=== PATIENT | male | born 1945 | race Caucasian/White ===

== ENCOUNTER 2018-06-15 05:34 | Inpatient (IN) | payer OTHER, MEDICARE ==
[2018-06-14 16:07] LABS: BASOPHILS % (AUTO) 0.5 % (0-1); EOSINOPHILS # (AUTO) 0.2 X10'3 (0-0.9); EOSINOPHILS % (AUTO) 2.1 % (0-6); LYMPHOCYTES # (AUTO) 1.2 X10'3 (1.1-4.8); LYMPHOCYTES % (AUTO) 13.2 % (21-51); MEAN CORPUSCULAR HEMOGLOBIN 28.4 PG (27.0-31.0); MEAN CORPUSCULAR HGB CONC 32.4 % (33.0-36.5); MEAN CORPUSCULAR VOLUME 87.7 FL (78-98); MEAN PLATELET VOLUME 7.8 FL (7.4-10.4); MONOCYTES # (AUTO) 0.7 X10'3 (0-0.9); MONOCYTES % (AUTO) 6.9 % (2-12); NEUTROPHILS # (AUTO) 7.3 X10'3 (1.8-7.7); NEUTROPHILS % (AUTO) 77.3 % (42-75); PRE OP HEMATOCRIT 40.5 % (42.0-52.0); PRE OP HEMOGLOBIN 13.1 g/dL (14.0-17.9); PRE OP PLATELET COUNT 371 X10'3 (140-440); RED BLOOD COUNT 4.62 X10'6 (4.70-6.10); RED CELL DISTRIBUTION WIDTH 15.1 % (11.5-14.5)
[2018-06-14 16:25] LABS: ALBUMIN 3.4 G/DL (3.4-5.0); ALBUMIN/GLOBULIN RATIO 0.7 (1.1-1.5); ALKALINE PHOSPHATASE 147 IU/L (46-116); BLOOD UREA NITROGEN 24 MG/DL (7-18); BUN/CREATININE RATIO 16.4 (5.4-32.0); CALCIUM 9.3 MG/DL (8.5-10.1); CHLORIDE 104 MMOL/L (99-107); CREATININE 1.46 MG/DL (0.60-1.10); PRE OP ALT 21 U/L (30-65); PRE OP ANION GAP 9 (8-16); PRE OP AST 15 U/L (10-37); PRE OP BILIRUB, TOTAL 0.4 MG/DL (0.0-1.0); PRE OP GLUCOSE 105 MG/DL (70-104); PRE OP POTASSIUM 4.1 MMOL/L (3.4-5.1); PRE OP SODIUM 139 MMOL/L (135-145); TOTAL CARBON DIOXIDE 26.2 MMOL/L (24-32); eGFR 47 ML/MIN
[2018-06-14 16:33] LABS: PRE OP INR 1.1 INR; PRE OP PROTIME 10.8 SECONDS (9.0-12.0)
[2018-06-15] VITALS (16 sets, daily range): BP systolic 90–150; BP diastolic 45–95
[~2018-06-15] VITALS: Ht 165.1 cm; Wt 71.6 kg
[~2018-06-15 05:34] MED LIST: AMLO5TAB PO; ASPI81TA52 PO; ATOR-2 PO; BUPR75TA8 PO; CHOL10002 PO; CLOP75TA33 PO; DOCUMENT DATE & TIME OF BETA-BLOCKER PO ONE; FINA5TAB11 PO; LISI40TA4 PO; METO25TA6 PO; NITR0.4T48 SL; PANT-47 PO; RANO500T3 PO; ZOLP5TAB8 PO; cefazolin/dext.iso 2gm/100 ML IV ONE; famotidine 20mg tablet PO ONE; ringers solution, lacted 1,000 ML IV SCH
[2018-06-15] MEDS ORDERED: LIDOcaine 1% (10mg/ml) 2ml vial ONE (06:42)
[2018-06-15] MEDS ORDERED: BUPIVAcaine/PF 2.5mg/ml (0.25%) 10ml vial ONE ×2 (06:43→09:16)
[2018-06-15] MEDS ORDERED: sevoflurane 250ml liquid IH ONE (07:10)
[2018-06-15] MEDS ORDERED: neostigmine methylsulfate 1 MG/ML 10ml vial ONE (07:10)
[2018-06-15] MEDS ORDERED: glycopyrrolate 0.2mg/ml inj ONE (07:10)
[2018-06-15] MEDS ORDERED: rocuronium 10mg/ml inj IV ONE ×2 (07:10→07:19)
[2018-06-15] MEDS ORDERED: fentaNYL /PF 50mcg/ml 5ml ampule ONE (07:18)
[2018-06-15] MEDS ORDERED: MIDAZolam 5mg/5ml vial ONE (07:18)
[2018-06-15] MEDS ORDERED: propofol inj 20 ML IV ONE (07:19)
[2018-06-15] MEDS ORDERED: ePHEDrine 50MG/ML INJ. ONE (08:30)
[2018-06-15] MEDS ORDERED: ringers solution, lacted 1,000 ML IV SCH (09:12)
[2018-06-15] MEDS ORDERED: proCHLORperazine 10 MG/2 ml inj IV PRN (09:15)
[2018-06-15] MEDS ORDERED: morphine 4 MG/ML inj SYRINge IV PRN ×4 (09:15→12:05)
[2018-06-15] MEDS ORDERED: meperidine/PF 25mg/ml syringe IV PRN ×3 (09:15)
[2018-06-15] MEDS ORDERED: ondansetron/PF 4mg/2ml inj IV PRN ×2 (09:15→12:05)
[2018-06-15] MEDS ORDERED: albumin (Human) 5% 250ml 250 ML IV ONE ×2 (09:18)
[2018-06-15] MEDS ORDERED: ondansetron/PF 4mg/2ml inj ONE (11:23)
[2018-06-15] MEDS ORDERED: dexamethasone sod phosphate 4mg/ml inj. ONE (11:23)
[2018-06-15] MEDS ORDERED: zolpidem 5mg tablet PO PRN (12:00)
[2018-06-15] MEDS ORDERED: CADD PCA waste documentation MC PRN (12:05)
[2018-06-15] MEDS ORDERED: HYDROcodone/acetaminophen 10/325mg tab PO PRN (12:05)
[2018-06-15] MEDS ORDERED: albuterol 2.5 MG/3 ML nebule NEB PRN ×2 (12:05)
[2018-06-15] MEDS ORDERED: magnesium hydroxide 30ml (MOM) UD suspension PO PRN (12:05)
[2018-06-15] MEDS ORDERED: naloxone 0.4 mg/ml inj IV PRN (12:05)
[2018-06-15] MEDS ORDERED: metoclopramide 5 mg/ml inj IV PRN (12:05)
--- NOTE | 2018-06-15 12:10 | NUR ---
Received from OR via BED, accompanied by Anesthesiologist DR KNIGHT--- and report given by Anesthesiolgist. PATIENT A&OX4, DENIES PAIN, V/S WNL, NEUROVASCULAR CHECKS INTACT, 18G PIV RUE, SCD ON, , ART LINE RUE, CENTRAL LINE LEFT NECK 3 LUMEN, F/C DRAINAING CLEAR YELLOW URINE, SCD ON, CHEST TUBE TO RIGHT LATERAL SIDE AT 20CM SUCTION WITH MINIMAL LEAK AND DR ZUNIGA AWARE NO CHANGES OR NEW ORDERS, APPROX 30CC IN DRAIN RED BLOOD.
[2018-06-15 12:36] LABS: BASOPHILS % (AUTO) 0.1 % (0-1); EOSINOPHILS # (AUTO) 0.1 X10'3 (0-0.9); EOSINOPHILS % (AUTO) 0.9 % (0-6); HEMATOCRIT 30.2 % (42.0-52.0); LYMPHOCYTES # (AUTO) 0.7 X10'3 (1.1-4.8); LYMPHOCYTES % (AUTO) 5.1 % (21-51); MEAN CORPUSCULAR HEMOGLOBIN 28.7 PG (27.0-31.0); MEAN PLATELET VOLUME 7.5 FL (7.4-10.4); MONOCYTES # (AUTO) 0.5 X10'3 (0-0.9); MONOCYTES % (AUTO) 3.7 % (2-12); NEUTROPHILS # (AUTO) 11.8 X10'3 (1.8-7.7); NEUTROPHILS % (AUTO) 90.2 % (42-75); PLATELET COUNT 293 X10'3 (140-440); RED BLOOD COUNT 3.47 X10'6 (4.70-6.10)
[2018-06-15 12:41] LABS: ABG BASE EXCESS -4.3 mmol/L (-2.0-3.0); ABG HCO3 20.3 mmol/L (22.0-26.0); ABG PCO2 (T) 35.8 mmHg (35.0-48.0); ABG PH (T) 7.372 (7.350-7.450); ABG PO2 (T) 207.1 mmHg (83-108); FCOHb 0.3 % (0.5-1.5); FLOW 10 L/min; FMetHb 0.3 % (0.3-1.12); FO2Hb 98.4 % (94-100); ISTAT CREATININE 1.4 mg/dL (0.8-1.3); ISTAT HGB 10.2 g/dl (14.0-18.0); ISTAT IONIZED CALCIUM 1.12 mmol/L (1.03-1.32); ISTAT K 4.5 mmol/L (3.5-5.1); POC BUN/CREATININE RATIO 15.7 (5.4-32.0); TOTAL HEMOGLOBIN 10.9 G/dl (14.0-18.0)
[2018-06-15 12:48] LABS: ALBUMIN 2.9 G/DL (3.4-5.0); ANION GAP 10 (8-16); BLOOD UREA NITROGEN 20 MG/DL (7-18); BUN/CREATININE RATIO 13.7 (5.4-32.0); CALCIUM 7.8 MG/DL (8.5-10.1); CHLORIDE 107 MMOL/L (99-107); CREATININE 1.46 MG/DL (0.60-1.10); GLUCOSE 166 MG/DL (70-104); MAGNESIUM 1.4 MG/DL (1.5-2.4); POTASSIUM 4.5 MMOL/L (3.5-5.1); SODIUM 139 MMOL/L (135-145); TOTAL CARBON DIOXIDE 21.9 MMOL/L (24-32); eGFR 47 ML/MIN
[2018-06-15] MEDS: morphine/NS 5 mg/ml CADD 50 ML IV SCH ×6 (13:22→23:00)
--- NOTE | 2018-06-15 13:30 | NUR ---
PATIENT A&OX4, DENIES PAIN, V/S WNL, NEUROVASCULAR CHECKS INTACT, 18G PIV RUE, SCD ON, CENTRAL LINE LEFT NECK 3 LUMEN, F/C DRAINING CLEAR YELLOW URINE, SCD ON, CHEST TUBE TO RIGHT LATERAL SIDE AT 20CM SUCTION WITH MINIMAL LEAK AND DR ZUNIGA AWARE OF THIS AND ALSO OF CXR, ABG, AND ISTAT RESULTS WITH NO CHANGES OR NEW ORDERS, APPROX 25CC IN DRAIN W/ RED BLOOD. SAFETY INSTRUCTOR STARTED AND PATIENT GIVEN INSTRUCTIONS ON ITS USE, PATIENT TAKEN TO [facility] UN[facility] WITH ALL BELONGINGS AND HOOKED UP TO MONITORS IN ROOM AND REPORT GIVEN TO ART RN WHO HAS TAKEN OVER PATIENT CARE.
--- NOTE | 2018-06-15 15:04 | NUR ---
Call to Bob juarez pt pain. We can activate the norco 10 order and increase the CADD per protocol
[2018-06-15] MEDS: HYDROcodone/acetaminophen 10/325mg tab PO PRN (15:27)
[2018-06-15] MEDS: ceFAZolin 1GM/D5W- ADD-VANTAGE 50 ML IV SCH ×2 (16:23→23:44)
--- NOTE | 2018-06-15 18:10 | NUR ---
Patient in room MED 316. I have received report from Art and had the opportunity to ask questions and assume patient care.
[2018-06-15] MEDS: ranolazine 500mg SR tablet (Q12H) PO SCH (21:09)
[2018-06-15] MEDS: metoprolol tartrate 25mg tablet PO SCH (21:09)
[2018-06-15] MEDS: docusate sod 100mg capsule PO SCH (21:10)
[2018-06-15] MEDS: buPROPion SR 150mg tablet PO SCH (21:13)
[2018-06-15] MEDS ORDERED: magnesium 2GM in 50ml NS 50 ML IV PRN (22:20)
[2018-06-15] MEDS ORDERED: magnesium 4gm in 100ml NS 100 ML IV PRN (22:20)
[2018-06-15] MEDS ORDERED: magnesium Cl slow-release 64mg tablet PO PRN (22:20)
[2018-06-16] MEDS: morphine/NS 5 mg/ml CADD 50 ML IV SCH ×12 (01:00→23:00)
[2018-06-16 02:00] VITALS: BP 127/62
[2018-06-16 04:27] LABS: MAGNESIUM 1.5 MG/DL (1.5-2.4)
[2018-06-16 04:41] LABS: BASOPHILS % (AUTO) 0 % (0-1); EOSINOPHILS # (AUTO) 0.2 X10'3 (0-0.9); EOSINOPHILS % (AUTO) 1.2 % (0-6); HEMATOCRIT 31.7 % (42.0-52.0); HEMOGLOBIN 10.5 g/dl (14.0-17.9); LYMPHOCYTES # (AUTO) 0.4 X10'3 (1.1-4.8); LYMPHOCYTES % (AUTO) 3.2 % (21-51); MEAN CORPUSCULAR HEMOGLOBIN 28.9 PG (27.0-31.0); MEAN CORPUSCULAR VOLUME 87.4 FL (78-98); MEAN PLATELET VOLUME 7.9 FL (7.4-10.4); MONOCYTES # (AUTO) 0.9 X10'3 (0-0.9); MONOCYTES % (AUTO) 6.4 % (2-12); NEUTROPHILS % (AUTO) 89.2 % (42-75); PLATELET COUNT 312 X10'3 (140-440); RED BLOOD COUNT 3.63 X10'6 (4.70-6.10); RED CELL DISTRIBUTION WIDTH 15.4 % (11.5-14.5); WHITE BLOOD COUNT 13.5 X10'3 (4.5-11.0)
[2018-06-16 07:00] VITALS: BP 113/53
[2018-06-16] MEDS: finasteride 5mg tablet PO SCH (08:00)
[2018-06-16] MEDS: metoprolol tartrate 25mg tablet PO SCH ×2 (09:08→20:21)
[2018-06-16] MEDS: vitamin D (cholecalciferol) 1,000 unit tablet PO SCH (09:09)
[2018-06-16] MEDS: ranolazine 500mg SR tablet (Q12H) PO SCH ×2 (09:09→20:20)
[2018-06-16] MEDS: aspirin 81mg tablet.DR PO SCH (09:09)
[2018-06-16] MEDS: atorvastatin 20mg tablet PO SCH (09:09)
[2018-06-16] MEDS: amLODIPine 5mg tablet PO SCH (09:10)
[2018-06-16] MEDS: pantoprazole 40mg Tablet.DR PO SCH (09:10)
[2018-06-16] MEDS: lisinopril 20mg tablet PO SCH (09:10)
[2018-06-16] MEDS: buPROPion SR 150mg tablet PO SCH ×2 (09:10→20:21)
[2018-06-16] MEDS: docusate sod 100mg capsule PO SCH ×2 (09:11→20:22)
--- NOTE | 2018-06-16 09:30 | NUR ---
Dr. Tripathi at bedside. Changed chest tube to water seal.
--- NOTE | 2018-06-16 10:00 | NUR ---
Orders to d/c central line. PIV in right arm infiltrated. Attempted to start new PIV and 2 other nurses attempted unsuccessfully.
[2018-06-16 11:00] VITALS: BP 116/54
[2018-06-16 15:00] VITALS: BP 125/52
--- NOTE | 2018-06-16 15:30 | NUR ---
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
--- NOTE | 2018-06-16 16:00 | NUR ---
Patient is being a little impulsive. Bed alarm on. Will continue to monitor.
[2018-06-16 17:27] LABS: ANION GAP 10 (8-16); BLOOD UREA NITROGEN 23 MG/DL (7-18); BUN/CREATININE RATIO 14.6 (5.4-32.0); CALCIUM 8.3 MG/DL (8.5-10.1); CHLORIDE 104 MMOL/L (99-107); CREATININE 1.57 MG/DL (0.60-1.10); GLUCOSE 141 MG/DL (70-104); POTASSIUM 4.9 MMOL/L (3.5-5.1); SODIUM 138 MMOL/L (135-145); TOTAL CARBON DIOXIDE 24.1 MMOL/L (24-32); eGFR 44 ML/MIN
[2018-06-16 17:56] VITALS: BP 103/42
--- NOTE | 2018-06-16 18:25 | NUR ---
Problems reprioritized. Patient report given, questions answered & plan of care reviewed with Kirby RN.
[2018-06-16 23:00] VITALS: BP 96/50
[2018-06-17] MEDS: morphine/NS 5 mg/ml CADD 50 ML IV SCH ×12 (01:00→23:00)
[2018-06-17 03:00] VITALS: BP 123/54
[2018-06-17 04:23] LABS: ALBUMIN 2.6 G/DL (3.4-5.0); ANION GAP 10 (8-16); BLOOD UREA NITROGEN 30 MG/DL (7-18); BUN/CREATININE RATIO 17.5 (5.4-32.0); CALCIUM 8.2 MG/DL (8.5-10.1); CHLORIDE 105 MMOL/L (99-107); CREATININE 1.71 MG/DL (0.60-1.10); GLUCOSE 116 MG/DL (70-104); MAGNESIUM 1.6 MG/DL (1.5-2.4); POTASSIUM 4.2 MMOL/L (3.5-5.1); SODIUM 139 MMOL/L (135-145); TOTAL CARBON DIOXIDE 24.1 MMOL/L (24-32); eGFR 40 ML/MIN
[2018-06-17 04:46] LABS: BASOPHILS % (AUTO) 0.1 % (0-1); EOSINOPHILS % (AUTO) 0.1 % (0-6); HEMATOCRIT 31.2 % (42.0-52.0); LYMPHOCYTES # (AUTO) 0.5 X10'3 (1.1-4.8); LYMPHOCYTES % (AUTO) 3.9 % (21-51); MEAN CORPUSCULAR HEMOGLOBIN 28.1 PG (27.0-31.0); MEAN CORPUSCULAR VOLUME 87.8 FL (78-98); MEAN PLATELET VOLUME 8.1 FL (7.4-10.4); MONOCYTES # (AUTO) 0.9 X10'3 (0-0.9); MONOCYTES % (AUTO) 6.7 % (2-12); NEUTROPHILS # (AUTO) 11.5 X10'3 (1.8-7.7); NEUTROPHILS % (AUTO) 89.2 % (42-75); PLATELET COUNT 309 X10'3 (140-440); RED BLOOD COUNT 3.55 X10'6 (4.70-6.10); RED CELL DISTRIBUTION WIDTH 15.7 % (11.5-14.5); WHITE BLOOD COUNT 12.8 X10'3 (4.5-11.0)
[2018-06-17 06:00] VITALS: BP 118/52
[2018-06-17] MEDS: aspirin 81mg tablet.DR PO SCH (07:48)
[2018-06-17] MEDS: lisinopril 20mg tablet PO SCH (07:49)
[2018-06-17] MEDS: metoprolol tartrate 25mg tablet PO SCH ×2 (07:49→20:41)
[2018-06-17] MEDS: docusate sod 100mg capsule PO SCH ×2 (07:49→20:41)
[2018-06-17] MEDS: vitamin D (cholecalciferol) 1,000 unit tablet PO SCH (07:49)
[2018-06-17] MEDS: pantoprazole 40mg Tablet.DR PO SCH (07:49)
[2018-06-17] MEDS: buPROPion SR 150mg tablet PO SCH ×2 (07:49→20:41)
[2018-06-17] MEDS: finasteride 5mg tablet PO SCH (07:49)
[2018-06-17] MEDS: amLODIPine 5mg tablet PO SCH (07:50)
[2018-06-17] MEDS: atorvastatin 20mg tablet PO SCH (07:50)
[2018-06-17] MEDS: clopidogrel 75mg tablet PO SCH (07:50)
[2018-06-17] MEDS: ranolazine 500mg SR tablet (Q12H) PO SCH ×2 (07:50→20:41)
--- NOTE | 2018-06-17 08:45 | NUR ---
Bob Li at bedside, aware of small air leak noted only when patient coughs. no new orders, will continue to monitor.
[2018-06-17 11:00] VITALS: BP 107/44
[2018-06-17 15:00] VITALS: BP 108/68
[2018-06-17 18:00] VITALS: BP 108/68
--- NOTE | 2018-06-17 18:30 | NUR ---
Problems reprioritized. Patient report given, questions answered & plan of care reviewed with [EDEN LAINEZ].
[2018-06-17 22:00] VITALS: BP 112/45
[2018-06-18] MEDS: morphine/NS 5 mg/ml CADD 50 ML IV SCH ×12 (01:00→23:00)
[2018-06-18 02:00] VITALS: BP 117/38
[2018-06-18 05:40] LABS: ALBUMIN 2.3 G/DL (3.4-5.0); ANION GAP 8 (8-16); BLOOD UREA NITROGEN 36 MG/DL (7-18); CHLORIDE 106 MMOL/L (99-107); GLUCOSE 115 MG/DL (70-104); MAGNESIUM 1.6 MG/DL (1.5-2.4); POTASSIUM 4.1 MMOL/L (3.5-5.1); SODIUM 138 MMOL/L (135-145); TOTAL CARBON DIOXIDE 23.8 MMOL/L (24-32); eGFR 37 ML/MIN
[2018-06-18 05:41] LABS: BASOPHILS % (AUTO) 0.2 % (0-1); EOSINOPHILS # (AUTO) 0.2 X10'3 (0-0.9); EOSINOPHILS % (AUTO) 1.6 % (0-6); HEMATOCRIT 28.8 % (42.0-52.0); HEMOGLOBIN 9.4 g/dl (14.0-17.9); LYMPHOCYTES # (AUTO) 0.7 X10'3 (1.1-4.8); LYMPHOCYTES % (AUTO) 7.4 % (21-51); MEAN CORPUSCULAR HEMOGLOBIN 28.5 PG (27.0-31.0); MEAN CORPUSCULAR HGB CONC 32.7 % (33.0-36.5); MEAN CORPUSCULAR VOLUME 87.4 FL (78-98); MEAN PLATELET VOLUME 8.1 FL (7.4-10.4); MONOCYTES % (AUTO) 10.5 % (2-12); NEUTROPHILS # (AUTO) 7.8 X10'3 (1.8-7.7); NEUTROPHILS % (AUTO) 80.3 % (42-75); PLATELET COUNT 271 X10'3 (140-440); RED BLOOD COUNT 3.29 X10'6 (4.70-6.10); RED CELL DISTRIBUTION WIDTH 15.6 % (11.5-14.5); WHITE BLOOD COUNT 9.7 X10'3 (4.5-11.0)
[2018-06-18 06:00] VITALS: BP 117/50
--- NOTE | 2018-06-18 06:00 | NUR ---
Patient in room MED 316. I have received report from EDEN Lambert and had the opportunity to ask questions and assume patient care.
--- NOTE | 2018-06-18 06:27 | NUR ---
Problems reprioritized. Patient report given, questions answered & plan of care reviewed with Agatha HARMON.
[2018-06-18] MEDS ORDERED: albuterol 2.5 MG/3 ML nebule NEB SCH (08:00)
[2018-06-18] MEDS: docusate sod 100mg capsule PO SCH ×2 (08:00→20:59)
[2018-06-18] MEDS: aspirin 81mg tablet.DR PO SCH (08:09)
[2018-06-18] MEDS: atorvastatin 20mg tablet PO SCH (08:10)
[2018-06-18] MEDS: metoprolol tartrate 25mg tablet PO SCH ×2 (08:10→20:59)
[2018-06-18] MEDS: amLODIPine 5mg tablet PO SCH (08:11)
[2018-06-18] MEDS: clopidogrel 75mg tablet PO SCH (08:11)
[2018-06-18] MEDS: pantoprazole 40mg Tablet.DR PO SCH (08:12)
[2018-06-18] MEDS: finasteride 5mg tablet PO SCH (08:12)
[2018-06-18] MEDS: ranolazine 500mg SR tablet (Q12H) PO SCH ×2 (08:13→20:58)
[2018-06-18] MEDS: buPROPion SR 150mg tablet PO SCH ×2 (08:13→20:58)
[2018-06-18] MEDS: vitamin D (cholecalciferol) 1,000 unit tablet PO SCH (08:13)
[2018-06-18] MEDS: lisinopril 20mg tablet PO SCH (08:15)
--- NOTE | 2018-06-18 08:30 | NUR ---
Us removed, no complications. Will continue to monitor.
[2018-06-18 08:46] LABS: ABG BASE EXCESS -0.1 mmol/L (-2.0-3.0); ABG HCO3 24.2 mmol/L (22.0-26.0); ABG PH (T) 7.421 (7.350-7.450); ABG PO2 (T) 72.7 mmHg (83-108); ALLEN'S TEST Positive; FCOHb 0.5 % (0.5-1.5); FMetHb 0.1 % (0.3-1.12); FO2Hb 93.4 % (94-100); TOTAL HEMOGLOBIN 13.7 G/dl (14.0-18.0)
[2018-06-18] MEDS: ipratropium/albuterol 3ml nebule NEB SCH ×4 (10:16→23:23)
[2018-06-18 11:00] VITALS: BP 118/51
--- NOTE | 2018-06-18 15:15 | NUR ---
Patient had a moment of stating that he sees bugs on the sanchez and that someone else used his bathroom, neither of which were true. His mentation seemed a bit different than this morning, so notified Dr Tripathi and Bob Li as they were rounding on the floor. They assessed patient and didn't see any concerns at this time. No new orders received.
[2018-06-18 15:59] VITALS: BP 106/50
--- NOTE | 2018-06-18 17:00 | NUR ---
Patient complaining of discomfort in bladder area, bladder scan performed showing 636 ml. Straight cath performed, 600 mL out and repeat bladder scan of 000 mL. Will continue to monitor and pass on information to [facility] trista.
[2018-06-18 18:00] VITALS: BP 95/44
--- NOTE | 2018-06-18 18:02 | NUR ---
[place] documentation: I have reviewed and agree with all interventions, assessments performed and documented by Sherri HARMON. [facility] Medication Administration: For this medication-pass time frame, all medication were reviewed, dispensed, administered and documented per hospital policy by Sherri HARMON.
--- NOTE | 2018-06-18 18:22 | NUR ---
Problems reprioritized. Patient report given, questions answered & plan of care reviewed with Fausto HARMON.
--- NOTE | 2018-06-18 18:25 | NUR ---
Problems reprioritized. Patient report given, questions answered & plan of care reviewed with EDEN Lambert.
[2018-06-18 22:00] VITALS: BP 124/59
[2018-06-19] MEDS: morphine/NS 5 mg/ml CADD 50 ML IV SCH ×3 (01:00→05:00)
[2018-06-19 02:00] VITALS: BP 129/59
[2018-06-19] MEDS: ipratropium/albuterol 3ml nebule NEB SCH ×6 (03:25→23:33)
[2018-06-19 04:52] LABS: BASOPHILS % (AUTO) 0 % (0-1); EOSINOPHILS % (AUTO) 0.2 % (0-6); HEMATOCRIT 28.8 % (42.0-52.0); HEMOGLOBIN 9.6 g/dl (14.0-17.9); LYMPHOCYTES # (AUTO) 0.5 X10'3 (1.1-4.8); LYMPHOCYTES % (AUTO) 4.5 % (21-51); MEAN CORPUSCULAR HEMOGLOBIN 28.9 PG (27.0-31.0); MEAN CORPUSCULAR HGB CONC 33.2 % (33.0-36.5); MEAN CORPUSCULAR VOLUME 86.9 FL (78-98); MEAN PLATELET VOLUME 7.8 FL (7.4-10.4); MONOCYTES % (AUTO) 9.6 % (2-12); NEUTROPHILS # (AUTO) 8.6 X10'3 (1.8-7.7); NEUTROPHILS % (AUTO) 85.7 % (42-75); PLATELET COUNT 303 X10'3 (140-440); RED BLOOD COUNT 3.32 X10'6 (4.70-6.10)
[2018-06-19 05:09] LABS: ALBUMIN 2.2 G/DL (3.4-5.0); ANION GAP 12 (8-16); BLOOD UREA NITROGEN 28 MG/DL (7-18); BUN/CREATININE RATIO 19.2 (5.4-32.0); CALCIUM 8.1 MG/DL (8.5-10.1); CHLORIDE 106 MMOL/L (99-107); CREATININE 1.46 MG/DL (0.60-1.10); GLUCOSE 141 MG/DL (70-104); MAGNESIUM 1.6 MG/DL (1.5-2.4); POTASSIUM 4.1 MMOL/L (3.5-5.1); SODIUM 141 MMOL/L (135-145); TOTAL CARBON DIOXIDE 23.4 MMOL/L (24-32); eGFR 47 ML/MIN
[2018-06-19 06:00] VITALS: BP 151/68
--- NOTE | 2018-06-19 06:00 | NUR ---
Patient in room MED 316. I have received report from EDEN Lambert and had the opportunity to ask questions and assume patient care.
--- NOTE | 2018-06-19 06:38 | NUR ---
Problems reprioritized. Patient report given, questions answered & plan of care reviewed with Faith HARMON.
[2018-06-19] MEDS ORDERED: furosemide 40mg/4ml inj IV ONE (07:50)
[2018-06-19] MEDS: docusate sod 100mg capsule PO SCH ×2 (08:00→20:00)
[2018-06-19] MEDS: tamsulosin 0.4mg capsule PO SCH ×2 (08:35→21:27)
[2018-06-19] MEDS: atorvastatin 20mg tablet PO SCH (08:36)
[2018-06-19] MEDS: aspirin 81mg tablet.DR PO SCH (08:36)
[2018-06-19] MEDS: finasteride 5mg tablet PO SCH (08:37)
[2018-06-19] MEDS: amLODIPine 5mg tablet PO SCH (08:37)
[2018-06-19] MEDS: metoprolol tartrate 25mg tablet PO SCH ×2 (08:37→21:26)
[2018-06-19] MEDS: clopidogrel 75mg tablet PO SCH (08:37)
[2018-06-19] MEDS: pantoprazole 40mg Tablet.DR PO SCH (08:38)
[2018-06-19] MEDS: ranolazine 500mg SR tablet (Q12H) PO SCH ×2 (08:38→21:26)
[2018-06-19] MEDS: vitamin D (cholecalciferol) 1,000 unit tablet PO SCH (08:38)
[2018-06-19] MEDS: buPROPion SR 150mg tablet PO SCH ×2 (08:38→21:27)
[2018-06-19] MEDS: lisinopril 20mg tablet PO SCH (08:39)
[2018-06-19] MEDS: HYDROcodone/acetaminophen 10/325mg tab PO PRN (10:51)
[2018-06-19 11:00] VITALS: BP 151/68
[2018-06-19 15:00] VITALS: BP 124/57
[2018-06-19 18:00] VITALS: BP 103/45
--- NOTE | 2018-06-19 18:23 | NUR ---
Problems reprioritized. Patient report given, questions answered & plan of care reviewed with EDEN Lambert.
[2018-06-19 22:00] VITALS: BP 111/48
[2018-06-20 02:00] VITALS: BP 137/47
[2018-06-20] MEDS: HYDROcodone/acetaminophen 10/325mg tab PO PRN ×2 (04:09→10:07)
[2018-06-20] MEDS: ipratropium/albuterol 3ml nebule NEB SCH ×3 (04:14→11:00)
[2018-06-20 06:00] VITALS: BP 118/54
[2018-06-20 06:22] LABS: BASOPHILS % (AUTO) 0 % (0-1); EOSINOPHILS # (AUTO) 0.4 X10'3 (0-0.9); EOSINOPHILS % (AUTO) 3.3 % (0-6); HEMOGLOBIN 9.4 g/dl (14.0-17.9); LYMPHOCYTES # (AUTO) 0.7 X10'3 (1.1-4.8); LYMPHOCYTES % (AUTO) 5.6 % (21-51); MEAN CORPUSCULAR HEMOGLOBIN 29.1 PG (27.0-31.0); MEAN CORPUSCULAR HGB CONC 33.5 % (33.0-36.5); MEAN PLATELET VOLUME 7.8 FL (7.4-10.4); MONOCYTES # (AUTO) 1.2 X10'3 (0-0.9); MONOCYTES % (AUTO) 9.7 % (2-12); NEUTROPHILS # (AUTO) 9.8 X10'3 (1.8-7.7); NEUTROPHILS % (AUTO) 81.4 % (42-75); PLATELET COUNT 344 X10'3 (140-440); RED BLOOD COUNT 3.22 X10'6 (4.70-6.10); RED CELL DISTRIBUTION WIDTH 15.4 % (11.5-14.5)
--- NOTE | 2018-06-20 06:49 | NUR ---
Problems reprioritized. Patient report given, questions answered & plan of care reviewed with Suhail and Disha HARMON.
[2018-06-20] MEDS ORDERED: TAMS0.4C32 PO (06:56)
[2018-06-20] MEDS ORDERED: HYDR-3972 PO (06:56)
[2018-06-20] MEDS ORDERED: FLUT16SP2 BOTHNARES (06:58)
[2018-06-20] MEDS: amLODIPine 5mg tablet PO SCH (08:16)
[2018-06-20] MEDS: clopidogrel 75mg tablet PO SCH (08:16)
[2018-06-20] MEDS: finasteride 5mg tablet PO SCH (08:16)
[2018-06-20] MEDS: atorvastatin 20mg tablet PO SCH (08:16)
[2018-06-20] MEDS: docusate sod 100mg capsule PO SCH (08:16)
[2018-06-20] MEDS: vitamin D (cholecalciferol) 1,000 unit tablet PO SCH (08:16)
[2018-06-20] MEDS: buPROPion SR 150mg tablet PO SCH (08:17)
[2018-06-20] MEDS: aspirin 81mg tablet.DR PO SCH (08:17)
[2018-06-20] MEDS: lisinopril 20mg tablet PO SCH (08:26)
[2018-06-20 08:31] VITALS: BP_SYST 118
[2018-06-20] MEDS: metoprolol tartrate 25mg tablet PO SCH (08:31)
[2018-06-20] MEDS: ranolazine 500mg SR tablet (Q12H) PO SCH (08:31)
[2018-06-20] MEDS: pantoprazole 40mg Tablet.DR PO SCH (08:32)
--- NOTE | 2018-06-20 09:27 | NUR ---
Pt seen by [facility] for written/verbal high protein ed s/p RM lobectomy. RD reviewed high protein needs for wound healing, immune strength, high protein foods, and protein supplementation options. RD contact information provided in case of further questions. D/c home today. Addendum: 06/20/18 at [address] Amended: Links added.
--- NOTE | 2018-06-20 12:19 | NUR ---
Pt given DC instructions. IV removed, tip intact. Prescriptions (2) given to pt . Pt assisted to POV in WC with aby and RN. All property returned to pt.
--- NOTE | 2018-06-20 12:22 | NUR ---
[place] documentation: I have reviewed and agree with all interventions, assessments performed and documented by EDEN Gauthier.
== END 2018-06-20 12:15 | disposition home health service (06) | DRG 164 ==
LOC: PAS IN 05:34 → EDSTATUS 07:30 → MED 3N 13:35
PROVIDERS: ADMIT Thoracic Surgery (Cardiothoracic Vascular Surgery); ATTEND Thoracic Surgery (Cardiothoracic Vascular Surgery)
PROC: 07T74ZZ Resection of Thorax Lymphatic, Percutaneous Endoscopic Approach (ICD-10-PCS; 2018-06-15)
PROC: 0BBC4ZX Excision of Right Upper Lung Lobe, Percutaneous Endoscopic Approach, Diagnostic (ICD-10-PCS; 2018-06-15)
PROC: 0BJ08ZZ Inspection of Tracheobronchial Tree, Via Natural or Artificial Opening Endoscopic (ICD-10-PCS; 2018-06-15)
PROC: 02HV33Z Insertion of Infusion Device into Superior Vena Cava, Percutaneous Approach (ICD-10-PCS; 2018-06-15)
PROC: B548ZZA Ultrasonography of Superior Vena Cava, Guidance (ICD-10-PCS; 2018-06-15)
PROC: 0BTD4ZZ Resection of Right Middle Lung Lobe, Percutaneous Endoscopic Approach (ICD-10-PCS; principal; 2018-06-15 07:10)
DX: C34.2 Malignant neoplasm of middle lobe, bronchus or lung (principal); J93.82 Other air leak; I73.9 Peripheral vascular disease, unspecified; E78.5 Hyperlipidemia, unspecified; I12.9 Hypertensive chronic kidney disease with stage 1 through stage 4 chronic kidney disease, or unspecified chronic kidney disease; J44.9 Chronic obstructive pulmonary disease, unspecified; J84.89 Other specified interstitial pulmonary diseases; N18.9 Chronic kidney disease, unspecified; N40.0 Benign prostatic hyperplasia without lower urinary tract symptoms; R59.0 Localized enlarged lymph nodes; I08.3 Combined rheumatic disorders of mitral, aortic and tricuspid valves; I25.10 Atherosclerotic heart disease of native coronary artery without angina pectoris; Z98.61 Coronary angioplasty status; Z95.1 Presence of aortocoronary bypass graft; Z95.820 Peripheral vascular angioplasty status with implants and grafts; Z79.82 Long term (current) use of aspirin; Z85.89 Personal history of malignant neoplasm of other organs and systems; Z85.528 Personal history of other malignant neoplasm of kidney; Z87.448 Personal history of other diseases of urinary system; Z87.891 Personal history of nicotine dependence; Z80.6 Family history of leukemia; Z82.3 Family history of stroke
CPT/HCPCS: 36415; 36600; 71045; 71046; 80047; 80048; 80053; 82803; 82948; 83036; 83735; 85018; 85025; 85610; 85730; 86885; 86900; 86901; 86920; 87070; 93005; 93306; 94640; 94760; 97110; 97116; 97162; 97530; A6255; A6402; A6449; A7000; A7048; C1758; G0378; J0690; J1100; J1940; J2175; J2250; J2270; J2405; J2704; J2710; J2765; J3010; J3490; J7060; J7120; P9045

== ENCOUNTER 2018-07-02 09:23 | Outpatient (CLI) | payer OTHER, MEDICARE ==
[~2018-07-02 09:23] MED LIST changes: -DOCUMENT DATE & TIME OF BETA-BLOCKER PO ONE; +FLUT16SP2 BOTHNARES; +HYDR-3972 PO; +TAMS0.4C32 PO; -cefazolin/dext.iso 2gm/100 ML IV ONE; -famotidine 20mg tablet PO ONE; -ringers solution, lacted 1,000 ML IV SCH
== END 2018-07-02 23:59 | disposition home or self-care (01) ==
LOC: RAD 09:23
PROVIDERS: ATTEND Thoracic Surgery (Cardiothoracic Vascular Surgery)
DX: C34.2 Malignant neoplasm of middle lobe, bronchus or lung (principal); I10 Essential (primary) hypertension; I25.2 Old myocardial infarction
CPT/HCPCS: 71046